=== PATIENT | female | born 1945 | race Caucasian/White ===

== ENCOUNTER → 2018-07-27 | Outpatient (CLI) | payer MEDICARE ==
--- NOTE | 2018-07-27 11:55 | RADIOLOGY REPORT (SQ) ---
EXAM DESCRIPTION: MRI LT UPPER JOINT WITHOUT COMPLETED DATE/TIME: 07/27/2018 11:27 am REASON FOR STUDY: ADHESIVE CAPSULITIS OF LEFT SHOULDER M75.02 ADHESIVE CAPSULITIS OF LEFT SHOULDER COMPARISON: None. TECHNIQUE: Left shoulder images acquired and stored on PACS. Multiplanar imaging to include fat sens itive sequences such as T1, water sensitive sequences such as FST2/STIR, cartilage sensitive sequence s such as FSPD/gradient-echo sequences. LIMITATIONS: None. FINDINGS: BONE MARROW AND CORTEX: Small subcortical cysts are present along the posterosuperior bony glenoid. Degenerative change with edema and subcortical cysts at the AC joint JOINT OR BURSAL EFFUSION: Trace subacromial/subdeltoid bursa fluid. No glenohumeral joint effusion GLENO-HUMERAL ARTICULATION: Normal articulation. No subluxation. Mild chondromalacia with subcortica l cyst formation in the posterosuperior glenoid. ACROMION AND AC JOINT: Type 2 acromion with AC joint hypertrophy and small amount of fluid in the paiz bacromial/subdeltoid bursa ROTATOR CUFF AND INTERVAL: Thickening and high signal of the distal infraspinatus tendon with lumpy t umefactive area of tendon thickening, best shown on coronal image 13 and sagittal image 5. Minimal u ndersurface tendinopathy distal supraspinatus tendon. Minimal inferior edge infraspinatus tendinopat hy. No rotator interval tear. No rotator interval thickening to suggest adhesive capsulitis. LABRUM AND BICEPS LABRAL COMPLEX: Intra-articular long head biceps tendon high signal and diffusely thickened from tendinopathy. There is a superior labral tear extending anteriorly and posteriorly b est shown on axial gradient echo images 5-9. A 5 mm cyst is present along the posterosuperior labrum on axial image 6, coronal image 11, and sagittal image 15. REMAINDER OF LABRUM AND IGHL : No gross tear or paralabral cyst formation. Labral evaluation is less than optimal without joint distention. There is thickening of the inferior glenohumeral ligament an d a small axillary recess of the glenohumeral joint worrisome for adhesive capsulitis PERIARTICULAR AND ADJACENT SOFT TISSUES: No masses or abnormal nodes. OTHER: No other significant finding. IMPRESSION: Intra-articular long head biceps tendinopathy with superior labral tear Bulky thickening and high signal in the distal infraspinatus tendon from tendinopathy. Superior labral tear with small posterosuperior paralabral cyst. TECHNICAL DOCUMENTATION: JOB ID: [id number] [employer]- All Rights Reserved Reading location - IP/workstation name: [email or web address]
== END ==
LOC: RAD 10:36
PROVIDERS: ATTEND Orthopaedic Surgery
DX: M75.02 Adhesive capsulitis of left shoulder (principal)

== ENCOUNTER → 2018-08-13 | Outpatient (CLI) | payer MEDICARE ==
--- NOTE | 2018-08-13 11:24 | RADIOLOGY REPORT (SQ) ---
EXAM DESCRIPTION: MRI CERVICAL SPINE WITHOUT COMPLETED DATE/TIME: 08/13/2018 10:37 am REASON FOR STUDY: RADICULOPATHY, CERVICAL REGION M54.12 RADICULOPATHY, CERVICAL REGION COMPARISON: None. TECHNIQUE: Sagittal and Axial imaging includes T1, T2, STIR and gradient echo sequences. LIMITATIONS: None. FINDINGS: ALIGNMENT: Normal. VERTEBRAE: Intact. BONE MARROW: Mild fatty and sclerotic vertebral body endplate changes at C6-7 DISCS: Post fusion without hardware at C5-6. Diffuse decreased T2 weighted intervertebral disc signa l throughout the remainder of the cervical spine HARDWARE: None in the spine. CORD AND BASE OF BRAIN: Normal in size and signal intensity. SOFT TISSUES: No soft tissue masses. C1-C2: No significant spinal stenosis. C2-C3: Mild central canal stenosis results from broad diffuse posterior disc bulging. There is effac ement of the ventral thecal sac and minimal ventral cord flattening without definite abnormal intrins ic cord signal. No right foraminal narrowing. Mild left foraminal narrowing C3-C4: Borderline central canal narrowing results from broad diffuse posterior disc bulge and bony sp urring. Partial effacement of the ventral thecal sac without cord flattening or abnormal intrinsic c ord signal. No right foraminal narrowing. High-grade left foraminal narrowing. C4-C5: Broad diffuse posterior disc bulge and bony spurring is present partly effacing the ventral th ecal sac without cord flattening or abnormal intrinsic cord signal. No significant central stenosis. No right foraminal narrowing. High-grade left foraminal narrowing from facet and uncovertebral hyp ertrophy C5-C6: Remote prior fusion without metallic hardware. No central or foraminal encroachment C6-C7: Broad diffuse posterior disc bulge and bony spurring and ligamentum flavum thickening is prese nt. Borderline central canal narrowing with partial effacement of the CSF around the cervical cord. No cord flattening or abnormal intrinsic cord signal. High-grade bilateral foraminal narrowing from facet and uncovertebral hypertrophy. C7-T1: No central or foraminal stenosis. UPPER THORACIC: Multilevel bulky facet arthropathy is present with at least moderate bilateral forami nal narrowing at T1-2. Posterior disc bulging and facet hypertrophy is present at T3-4 with borderli ne central canal narrowing and mild bilateral foraminal narrowing OTHER: No other significant finding. IMPRESSION: Diffuse degenerative changes as above TECHNICAL DOCUMENTATION: JOB ID: [id number] [employer]- All Rights Reserved Reading location - IP/workstation name: [email or web address]
== END ==
LOC: RAD 09:41
PROVIDERS: ATTEND Orthopaedic Surgery
DX: M54.12 Radiculopathy, cervical region (principal)
CPT/HCPCS: 72141